=== PATIENT | male | born 1955 | race Caucasian/White ===

== ENCOUNTER → 2018-01-12 | Emergency (ER) | payer MEDICARE ==
[2018-01-12 17:44] LABS: INR-International Normal Ratio 1.1; PTT 25.3 SEC (22.9-36.1); Prothrombin Time 14.2 SEC (12.0-14.7)
[2018-01-12 17:46] LABS: #Basophils 0.1 thou/uL (0.0-0.2); #Eosinphils 0.2 thou/uL (0.0-0.7); #Lymphocytes 2.6 thou/uL (1.20-3.40); #Monocytes 0.7 thou/uL (0.11-0.59); #Neutrophils 5.8 thou/uL (1.40-6.50); %Basophils 0.6 % (0.0-1.0); %Eosinophils 2.1 % (0.0-10.0); %Lymphocytes 27.4 % (21.0-51.0); %Monocytes 7.8 % (0.0-10.0); %Neutrophils 62.1 % (42.0-75.0); Hemoglobin 14.2 g/dL (14.0-18.0); Mean Corpuscular Hemoglobin 28.6 pg (27.0-31.0); Mean Corpuscular Volume 86.8 fl (80.0-94.0); Mean Platelet Volume 5.6 fL (7.4-10.4); Platelet Count 190 thou/uL (130-400); RBC Distribution Width 13.1 % (11.5-14.5); Red Blood Cell (RBC) Count 4.95 mill/uL (4.70-6.10); White Blood Cell (WBC) Count 9.4 thou/uL (4.8-10.8)
[2018-01-12 17:55] LABS: ALT (SGPT) 27 U/L (8-55); AST (SGOT) 22 U/L (5-34); Albumin 3.9 g/dL (3.5-5.0); Alkaline Phosphatase 91 U/L (40-150); Anion Gap 17 mmol/L (10-20); BUN (Urea Nitrogen) 18 mg/dL (8.4-25.7); Bilirubin, Total 0.3 mg/dL (0.2-1.2); Calc. Creatinine Clearance 0 mL/min (70-130); Calcium 8.6 mg/dL (7.8-10.44); Carbon Dioxide 23 mmol/L (22-29); Chloride 107 mmol/L (98-107); Estimated GFR-MDRD Greater than 90; Globulin 3.3 g/dL (2.4-3.5); Glucose 97 mg/dL (70-105); Potassium 4.2 mmol/L (3.5-5.1); Protein, Total 7.2 g/dL (6.0-8.3); Sodium 143 mmol/L (136-145)
[2018-01-12 18:06] LABS: Bilirubin Negative (Negative); Blood, Urine Negative (Negative); Glucose, Urine (Dipstick) Negative (Negative); Leukocyte Negative (Negative); Nitrite Negative (Negative); Protein, Urine (Dipstick) Negative (Neg-Trace); Specific Gravity, Urine 1.025 (1.005-1.030); Urobilinogen 0.2 mg/dL (0.2-1.0)
[2018-01-12 18:07] LABS: Clarity Hazy (Clear)
[2018-01-12 18:13] LABS: Bacteria/HPF Rare-Few HPF (None Seen); RBC/HPF 0-3 HPF (0-3); Squamous Epithelial 0-3 HPF (0-3); WBC/HPF 0-3 HPF (0-3)
== END ==
LOC: MADERS 16:41
DX: Z76.0 Encounter for issue of repeat prescription (principal); G89.29 Other chronic pain; M54.2 Cervicalgia; I11.0 Hypertensive heart disease with heart failure; I50.9 Heart failure, unspecified; F31.9 Bipolar disorder, unspecified; F41.9 Anxiety disorder, unspecified; F43.10 Post-traumatic stress disorder, unspecified; I48.91 Unspecified atrial fibrillation; Z79.01 Long term (current) use of anticoagulants; Z79.899 Other long term (current) drug therapy
CPT/HCPCS: 36415; 80053; 81001; 83880; 85025; 85610; 85730; 87086; 99282

== ENCOUNTER 2018-06-24 14:15 | Outpatient (CLI) | payer MEDICARE ==
[2018-06-26 17:45] LABS: %Neutrophils 64.5 % (42.0-75.0); Hemoglobin 14.7 g/dL (14.0-18.0); Manual Diff?? NO; Mean Corpuscular HGB CONC 31.1 g/dL (32.0-36.0); Mean Corpuscular Hemoglobin 26.5 pg (27.0-31.0); Mean Platelet Volume 8.8 fL (7.4-10.4); Platelet Count 128 thou/uL (130-400); RBC Distribution Width 15.2 % (11.5-14.5); Red Blood Cell (RBC) Count 5.56 mill/uL (4.70-6.10); White Blood Cell (WBC) Count 9.7 thou/uL (4.8-10.8)
[2018-06-26 17:46] LABS: #Basophils 0.1 thou/uL (0.0-0.2); #Eosinphils 0.3 thou/uL (0.0-0.7); #Lymphocytes 2.3 thou/uL (1.20-3.40); #Monocytes 0.7 thou/uL (0.11-0.59); #Neutrophils 6.2 thou/uL (1.40-6.50); %Basophils 0.9 % (0.0-1.0); %Eosinophils 2.6 % (0.0-10.0); %Lymphocytes 24.3 % (21.0-51.0); %Monocytes 7.7 % (0.0-10.0)
[2018-06-26 17:47] LABS: INR-International Normal Ratio 2.2; PTT 43.1 SEC (22.9-36.1); Prothrombin Time 24.3 SEC (12.0-14.7)
[2018-06-26 17:48] LABS: Anion Gap 13 mmol/L (10-20); Carbon Dioxide 25 mmol/L (22-29); Chloride 103 mmol/L (98-107); Potassium 4.4 mmol/L (3.5-5.1); Sodium 137 mmol/L (136-145)
[2018-06-26 17:49] LABS: ALT (SGPT) 28 U/L (8-55); AST (SGOT) 33 U/L (5-34); Alkaline Phosphatase 87 U/L (40-150); BUN (Urea Nitrogen) 13 mg/dL (8.4-25.7); Bilirubin, Total 0.9 mg/dL (0.2-1.2); Calc. Creatinine Clearance 0 mL/min (70-130); Calcium 9.2 mg/dL (7.8-10.44); Estimated GFR-MDRD Greater than 90; Globulin 3.9 g/dL (2.4-3.5); Glucose 91 mg/dL (70-105); Protein, Total 7.9 g/dL (6.0-8.3)
== END 2018-06-24 14:16 | disposition home or self-care (01) ==
LOC: MADLAB 14:15
PROVIDERS: ATTEND Family Medicine
DX: Z51.81 Encounter for therapeutic drug level monitoring (principal); I48.2 Chronic atrial fibrillation; I50.9 Heart failure, unspecified; Z79.01 Long term (current) use of anticoagulants
CPT/HCPCS: 36415; 80053; 85025; 85610; 85730

== ENCOUNTER 2018-08-02 16:25 | Outpatient (CLI) | payer MEDICARE ==
[2018-08-02 16:45] LABS: #Basophils 0.1 thou/uL (0.0-0.2); #Eosinphils 0.2 thou/uL (0.0-0.7); #Lymphocytes 2.6 thou/uL (1.20-3.40); #Monocytes 0.8 thou/uL (0.11-0.59); #Neutrophils 5.8 thou/uL (1.40-6.50); %Basophils 0.8 % (0.0-1.0); %Eosinophils 2.5 % (0.0-10.0); %Lymphocytes 27.2 % (21.0-51.0); %Monocytes 8.7 % (0.0-10.0); %Neutrophils 60.8 % (42.0-75.0); Hemoglobin 15.8 g/dL (14.0-18.0); Mean Corpuscular HGB CONC 31.3 g/dL (32.0-36.0); Mean Corpuscular Hemoglobin 27.1 pg (27.0-31.0); Mean Corpuscular Volume 86.6 fL (78.0-98.0); Mean Platelet Volume 8.7 fL (7.4-10.4); Platelet Count 182 thou/uL (130-400); RBC Distribution Width 15.5 % (11.5-14.5); Red Blood Cell (RBC) Count 5.81 mill/uL (4.70-6.10); White Blood Cell (WBC) Count 9.6 thou/uL (4.8-10.8)
[2018-08-02 16:48] LABS: INR-International Normal Ratio 1.7; Prothrombin Time 19.7 SEC (12.0-14.7)
[2018-08-02 17:10] LABS: ALT (SGPT) 29 U/L (8-55); AST (SGOT) 33 U/L (5-34); Albumin 4.2 g/dL (3.4-4.8); Alkaline Phosphatase 96 U/L (40-150); Anion Gap 17 mmol/L (10-20); BUN (Urea Nitrogen) 14 mg/dL (8.4-25.7); Bilirubin, Total 0.5 mg/dL (0.2-1.2); Calc. Creatinine Clearance 0 mL/min (70-130); Calcium 8.9 mg/dL (7.8-10.44); Carbon Dioxide 26 mmol/L (23-31); Chloride 101 mmol/L (98-107); Estimated GFR-MDRD 81; Globulin 3.9 g/dL (2.4-3.5); Glucose 116 mg/dL (80-115); Potassium 4.5 mmol/L (3.5-5.1); Protein, Total 8.1 g/dL (5.8-8.1); Sodium 139 mmol/L (136-145)
== END 2018-08-02 16:26 | disposition home or self-care (01) ==
LOC: MADLABBHPM 16:25
PROVIDERS: ATTEND Family Medicine
DX: Z51.81 Encounter for therapeutic drug level monitoring (principal); I48.2 Chronic atrial fibrillation; Z79.01 Long term (current) use of anticoagulants
CPT/HCPCS: 36415; 80053; 85025; 85610; 85730

== ENCOUNTER 2018-08-31 15:54 | Outpatient (CLI) | payer MEDICARE, MEDICAID ==
[2018-08-31 16:19] LABS: INR-International Normal Ratio 2.1; Prothrombin Time 23.8 SEC (12.0-14.7)
== END 2018-08-31 15:55 | disposition home or self-care (01) ==
LOC: MADLAB 15:54
PROVIDERS: ATTEND Family Medicine
DX: Z51.81 Encounter for therapeutic drug level monitoring (principal); I48.2 Chronic atrial fibrillation; Z79.01 Long term (current) use of anticoagulants
CPT/HCPCS: 36415; 85610

== ENCOUNTER 2018-09-30 14:10 | Outpatient (CLI) | payer MEDICARE, MEDICAID ==
[2018-09-30 14:38] LABS: INR-International Normal Ratio 1.4; PTT 32.6 SEC (22.9-36.1); Prothrombin Time 17.6 SEC (12.0-14.7)
== END 2018-09-30 14:11 | disposition home or self-care (01) ==
LOC: MADLABBHPM 14:10
PROVIDERS: ATTEND Family Medicine
DX: Z51.81 Encounter for therapeutic drug level monitoring (principal); I48.2 Chronic atrial fibrillation; Z79.01 Long term (current) use of anticoagulants
CPT/HCPCS: 36415; 85610; 85730

== ENCOUNTER 2018-10-27 16:23 | Outpatient (CLI) | payer MEDICARE, MEDICAID ==
[2018-10-27 17:07] LABS: INR-International Normal Ratio 2.5; PTT 36.6 SEC (22.9-36.1); Prothrombin Time 27.2 SEC (12.0-14.7)
== END 2018-10-27 16:24 | disposition home or self-care (01) ==
LOC: MADLAB 16:23
PROVIDERS: ATTEND Family Medicine
DX: I48.2 Chronic atrial fibrillation (principal)
CPT/HCPCS: 36415; 85610; 85730

== ENCOUNTER 2018-11-18 15:30 | Outpatient (CLI) | payer MEDICARE, MEDICAID ==
[2018-11-18 16:06] LABS: INR-International Normal Ratio 2.8; PTT 50.1 SEC (22.9-36.1); Prothrombin Time 29.3 SEC (12.0-14.7)
== END 2018-11-18 15:31 | disposition home or self-care (01) ==
LOC: MADLABBHPM 15:30
PROVIDERS: ATTEND Family Medicine
DX: Z51.81 Encounter for therapeutic drug level monitoring (principal); I50.9 Heart failure, unspecified; I48.2 Chronic atrial fibrillation; Z79.01 Long term (current) use of anticoagulants
CPT/HCPCS: 36415; 85610; 85730

== ENCOUNTER 2018-12-22 14:43 | Outpatient (CLI) | payer MEDICARE, MEDICAID ==
[2018-12-22 15:05] LABS: INR-International Normal Ratio 2.6; PTT 43.5 SEC (22.9-36.1); Prothrombin Time 27.6 SEC (12.0-14.7)
== END 2018-12-22 14:44 | disposition home or self-care (01) ==
LOC: MADLABBHPM 14:43
PROVIDERS: ATTEND Family Medicine
DX: Z51.81 Encounter for therapeutic drug level monitoring (principal); Z79.01 Long term (current) use of anticoagulants; I48.2 Chronic atrial fibrillation
CPT/HCPCS: 36415; 85610; 85730

== ENCOUNTER 2019-01-26 16:21 | Outpatient (CLI) | payer MEDICARE, MEDICAID ==
[2019-01-26 16:49] LABS: PTT 47.9 SEC (22.9-36.1); Prothrombin Time 30.9 SEC (12.0-14.7)
== END 2019-01-26 16:22 | disposition home or self-care (01) ==
LOC: MADLABBHPM 16:21
PROVIDERS: ATTEND Family Medicine
DX: Z51.81 Encounter for therapeutic drug level monitoring (principal); I48.2 Chronic atrial fibrillation; Z79.01 Long term (current) use of anticoagulants
CPT/HCPCS: 36415; 85610; 85730

== ENCOUNTER 2019-02-23 14:09 | Outpatient (CLI) | payer MEDICARE, MEDICAID ==
[2019-02-23 15:31] LABS: INR-International Normal Ratio 2.8; PTT 56.4 SEC (22.9-36.1); Prothrombin Time 29.6 SEC (12.0-14.7)
== END 2019-02-23 14:10 | disposition home or self-care (01) ==
LOC: MADLABBHPM 14:09
PROVIDERS: ATTEND Family Medicine
DX: Z51.81 Encounter for therapeutic drug level monitoring (principal); I48.2 Chronic atrial fibrillation; Z79.01 Long term (current) use of anticoagulants
CPT/HCPCS: 36415; 85610; 85730

== ENCOUNTER 2019-03-27 13:18 | Outpatient (CLI) | payer MEDICARE, MEDICAID ==
[2019-03-27 14:39] LABS: PTT 48.1 SEC (22.9-36.1); Prothrombin Time 31.2 SEC (12.0-14.7)
== END 2019-03-27 13:19 | disposition home or self-care (01) ==
LOC: MADLABBHPM 13:18
PROVIDERS: ATTEND Family Medicine
DX: Z51.81 Encounter for therapeutic drug level monitoring (principal); I48.2 Chronic atrial fibrillation; Z79.01 Long term (current) use of anticoagulants
CPT/HCPCS: 36415; 85610; 85730

== ENCOUNTER 2019-04-28 14:55 | Outpatient (CLI) | payer MEDICARE, MEDICAID ==
[2019-04-28 15:16] LABS: INR-International Normal Ratio 1.6; PTT 33.6 SEC (22.9-36.1); Prothrombin Time 18.8 SEC (12.0-14.7)
== END 2019-04-28 14:56 | disposition home or self-care (01) ==
LOC: MADLABBHPM 14:55
PROVIDERS: ATTEND Family Medicine
DX: Z51.81 Encounter for therapeutic drug level monitoring (principal); I48.2 Chronic atrial fibrillation; Z79.01 Long term (current) use of anticoagulants
CPT/HCPCS: 36415; 85610; 85730

== ENCOUNTER 2019-05-29 13:18 | Outpatient (CLI) | payer MEDICARE, MEDICAID ==
[2019-05-29 13:51] LABS: INR-International Normal Ratio 3.1; PTT 48.5 SEC (22.9-36.1); Prothrombin Time 31.4 SEC (12.0-14.7)
== END 2019-05-29 13:19 | disposition home or self-care (01) ==
LOC: MADLABBHPM 13:18
PROVIDERS: ATTEND Family Medicine
DX: I48.2 Chronic atrial fibrillation (principal)
CPT/HCPCS: 36415; 85610; 85730

== ENCOUNTER 2019-07-03 11:24 | Outpatient (CLI) | payer MEDICARE, MEDICAID ==
[2019-07-03 18:45] LABS: INR-International Normal Ratio 3.2; Prothrombin Time 32.8 SEC (12.0-14.7)
[2019-07-03 18:46] LABS: PTT 54.6 SEC (22.9-36.1)
== END 2019-07-03 11:25 | disposition home or self-care (01) ==
LOC: MADLABBHPM 11:24
PROVIDERS: ATTEND Family Medicine
DX: Z51.81 Encounter for therapeutic drug level monitoring (principal); I48.20 Chronic atrial fibrillation, unspecified; Z79.01 Long term (current) use of anticoagulants
CPT/HCPCS: 36415; 85610; 85730

== ENCOUNTER 2019-08-03 14:32 | Emergency (ER) | payer MEDICARE, MEDICAID ==
[2019-08-03 15:23] LABS: Bilirubin Negative (Negative); Blood, Urine Trace (Negative); Clarity Clear (Clear); Glucose, Urine (Dipstick) Negative (Negative); Leukocyte Negative (Negative); Nitrite Negative (Negative); Protein, Urine (Dipstick) Negative (Neg-Trace); Urobilinogen 0.2 mg/dL (Less than 2)
[2019-08-03 15:26] LABS: RBC/HPF 0-3 HPF (0-3); Squamous Epithelial 0-3 HPF (0-3); WBC/HPF None Seen HPF (0-3)
[2019-08-03 15:27] LABS: Bacteria/HPF None Seen HPF (None Seen)
[2019-08-03] MEDS ORDERED: Sodium Chloride 0.9% 1,000 ML ONE (15:30)
[2019-08-03] MEDS ORDERED: Acetaminophen 500 MG TAB ONE (15:30)
[2019-08-03 15:41] LABS: INR-International Normal Ratio 3.8; PTT 57.9 SEC (22.9-36.1); Prothrombin Time 36.8 SEC (12.0-14.7)
[2019-08-03 15:48] LABS: CRP (Inflammatory) 1.08 mg/dL (= or < 0.5)
[2019-08-03 15:51] LABS: ALT (SGPT) 42 U/L (8-55); AST (SGOT) 33 U/L (5-34); Albumin 4.5 g/dL (3.4-4.8); Alkaline Phosphatase 77 U/L (40-110); Anion Gap 16 mmol/L (10-20); BUN (Urea Nitrogen) 12 mg/dL (8.4-25.7); Bilirubin, Total 0.8 mg/dL (0.2-1.2); Calc. Creatinine Clearance 0 mL/min (70-130); Calcium 9.4 mg/dL (7.8-10.44); Carbon Dioxide 27 mmol/L (23-31); Chloride 101 mmol/L (98-107); Estimated GFR-MDRD Greater than 90; Globulin 3.7 g/dL (2.4-3.5); Glucose 87 mg/dL (80-115); Lipase 21 U/L (8-78); Potassium 4.3 mmol/L (3.5-5.1); Protein, Total 8.2 g/dL (5.8-8.1); Sodium 140 mmol/L (136-145)
[2019-08-03 16:00] LABS: Band 1 % (5-11); Hemoglobin 15.6 g/dL (14.0-18.0); Lymphocytes 16 % (21-51); MDiff Complete? YES; Mean Corpuscular HGB CONC 29.9 g/dL (32.0-36.0); Mean Corpuscular Hemoglobin 27.4 pg (27.0-31.0); Mean Corpuscular Volume 91.6 fL (78.0-98.0); Mean Platelet Volume 7.2 fL (7.4-10.4); Monocytes 2 % (0-10); Neutrophil 81 % (42-75); Platelet Count 205 thou/uL (130-400); Platelet Morphology Comment Appears Adequate; RBC Distribution Width 13.7 % (11.5-14.5); Red Blood Cell (RBC) Count 5.69 mill/uL (4.70-6.10); White Blood Cell (WBC) Count 15.2 thou/uL (4.8-10.8)
[2019-08-03] MEDS ORDERED: Sodium Chloride 0.9% 200 ML ONE (16:10)
[2019-08-03] MEDS ORDERED: ceFOXitin 1 GM VIAL ONE (16:10)
== END 2019-08-03 17:24 | disposition short-term general hospital (02) ==
LOC: MADERS 14:32
DX: A41.9 Sepsis, unspecified organism (principal); T45.511A Poisoning by anticoagulants, accidental (unintentional), initial encounter; K43.6 Other and unspecified ventral hernia with obstruction, without gangrene; D72.829 Elevated white blood cell count, unspecified; I11.0 Hypertensive heart disease with heart failure; I50.9 Heart failure, unspecified; I49.9 Cardiac arrhythmia, unspecified; I48.91 Unspecified atrial fibrillation; F43.10 Post-traumatic stress disorder, unspecified; F31.9 Bipolar disorder, unspecified; Z79.899 Other long term (current) drug therapy
CPT/HCPCS: 36415; 80053; 81003; 81015; 82150; 82550; 83605; 83690; 84484; 85025; 85610; 85730; 86140; 87040; 87086; 87804; 93005; 94760; 96361; 96365; J0694; J3490; J7050

== ENCOUNTER 2019-08-17 13:46 | Outpatient (CLI) | payer MEDICARE, MEDICAID ==
[2019-08-17 14:21] LABS: INR-International Normal Ratio 1.5; Prothrombin Time 18.2 SEC (12.0-14.7)
== END 2019-08-17 13:47 | disposition home or self-care (01) ==
LOC: MADLABBHPM 13:46
PROVIDERS: ATTEND Family Medicine
DX: I48.20 Chronic atrial fibrillation, unspecified (principal)
CPT/HCPCS: 36415; 85610

== ENCOUNTER 2019-08-22 08:46 | Outpatient (CLI) | payer MEDICARE, MEDICAID ==
[2019-08-22 09:23] LABS: INR-International Normal Ratio 2.5; Prothrombin Time 26.5 SEC (12.0-14.7)
== END 2019-08-22 08:47 | disposition home or self-care (01) ==
LOC: MADLABBHPM 08:46
PROVIDERS: ATTEND Family Medicine
DX: I48.20 Chronic atrial fibrillation, unspecified (principal)
CPT/HCPCS: 36415; 85610

== ENCOUNTER 2019-09-26 11:25 | Outpatient (CLI) | payer MEDICARE, MEDICAID ==
[2019-09-26 12:05] LABS: #Basophils 0.1 thou/uL (0.0-0.2); #Eosinphils 0.1 thou/uL (0.0-0.7); #Lymphocytes 2.5 thou/uL (1.20-3.40); #Monocytes 0.8 thou/uL (0.11-0.59); #Neutrophils 4.3 thou/uL (1.40-6.50); %Basophils 0.8 % (0.0-1.0); %Eosinophils 1.8 % (0.0-10.0); %Lymphocytes 31.7 % (21.0-51.0); %Monocytes 10.2 % (0.0-10.0); %Neutrophils 55.5 % (42.0-75.0); Hemoglobin 14.2 g/dL (14.0-18.0); Mean Corpuscular HGB CONC 30.6 g/dL (32.0-36.0); Mean Corpuscular Volume 88.1 fL (78.0-98.0); Mean Platelet Volume 7.3 fL (7.4-10.4); Platelet Count 212 thou/uL (130-400); RBC Distribution Width 13.6 % (11.5-14.5); Red Blood Cell (RBC) Count 5.26 mill/uL (4.70-6.10); White Blood Cell (WBC) Count 7.8 thou/uL (4.8-10.8)
[2019-09-26 12:16] LABS: ALT (SGPT) 28 U/L (8-55); AST (SGOT) 24 U/L (5-34); Albumin 3.9 g/dL (3.4-4.8); Alkaline Phosphatase 73 U/L (40-110); Anion Gap 12 mmol/L (10-20); BUN (Urea Nitrogen) 11 mg/dL (8.4-25.7); Bilirubin, Total 0.6 mg/dL (0.2-1.2); Calc. Creatinine Clearance 0 mL/min (70-130); Calcium 8.9 mg/dL (7.8-10.44); Carbon Dioxide 26 mmol/L (23-31); Cardiac Risk 4.9 (Less than 4.5); Chloride 106 mmol/L (98-107); Cholesterol 162 mg/dl (< 200 Desired); Estimated GFR-MDRD Greater than 90; Globulin 3.8 g/dL (2.4-3.5); Glucose 97 mg/dL (80-115); HDL Cholesterol 33 mg/dL (>60 Neg Risk); LDL Cholesterol, Calculated 112 mg/dL; Potassium 4.2 mmol/L (3.5-5.1); Protein, Total 7.7 g/dL (5.8-8.1); Sodium 140 mmol/L (136-145); Triglycerides 83 mg/dL (Less than 150)
[2019-09-26 12:36] LABS: Thyroid Stimulating Hormone 1.3412 uIU/mL (0.35-4.94)
[2019-09-26 12:42] LABS: INR-International Normal Ratio 1.7; Prothrombin Time 19.9 SEC (12.0-14.7)
[2019-09-26 17:35] LABS: Hemoglobin A1c 5.8 % (4.0-6.0)
[2019-09-26 17:58] LABS: PSA-Asymptomatic (SCREENING) 10.23 ng/mL (0-4.0)
== END 2019-09-26 11:26 | disposition home or self-care (01) ==
LOC: MADLABBHPM 11:25
PROVIDERS: ATTEND Family Medicine
DX: Z12.5 Encounter for screening for malignant neoplasm of prostate (principal); I50.22 Chronic systolic (congestive) heart failure; I48.20 Chronic atrial fibrillation, unspecified; E66.01 Morbid (severe) obesity due to excess calories
CPT/HCPCS: 36415; 80053; 80061; 83036; 84443; 85025; 85610; G0103

== ENCOUNTER 2020-02-27 14:04 | Outpatient (CLI) | payer MEDICARE, MEDICAID ==
[2020-02-27 14:34] LABS: INR-International Normal Ratio 2.5; Prothrombin Time 26.6 sec (12.0-14.7)
== END 2020-02-27 14:05 | disposition home or self-care (01) ==
LOC: MADLAB 14:04
PROVIDERS: ATTEND Family Medicine
DX: Z51.81 Encounter for therapeutic drug level monitoring (principal); I48.20 Chronic atrial fibrillation, unspecified; Z79.01 Long term (current) use of anticoagulants
CPT/HCPCS: 36415; 85610

== ENCOUNTER 2020-03-26 10:11 | Outpatient (CLI) | payer MEDICARE, MEDICAID ==
[2020-03-26 11:14] LABS: INR-International Normal Ratio 3.9
== END 2020-03-26 10:12 | disposition home or self-care (01) ==
LOC: MADLAB 10:11
PROVIDERS: ATTEND Family Medicine
DX: Z51.81 Encounter for therapeutic drug level monitoring (principal); I48.20 Chronic atrial fibrillation, unspecified; Z79.01 Long term (current) use of anticoagulants
CPT/HCPCS: 36415; 85610

== ENCOUNTER 2020-04-30 11:44 | Outpatient (CLI) | payer MEDICARE, MEDICAID ==
[2020-04-30 12:10] LABS: INR-International Normal Ratio 2.2; Prothrombin Time 24.6 sec (12.0-14.7)
== END 2020-04-30 11:45 | disposition home or self-care (01) ==
LOC: MADLAB 11:44
PROVIDERS: ATTEND Family Medicine
DX: Z51.81 Encounter for therapeutic drug level monitoring (principal); I48.20 Chronic atrial fibrillation, unspecified; Z79.01 Long term (current) use of anticoagulants
CPT/HCPCS: 36415; 85610

== ENCOUNTER 2020-04-30 20:08 | Emergency (ER) | payer MEDICARE, MEDICAID ==
[2020-04-30] MEDS ORDERED: Sodium Chloride 0.9% 1,000 ML ONE (20:24)
[2020-04-30] MEDS ORDERED: Ondansetron PF 4 MG/2 ML Vial ONE (20:24)
[2020-04-30] MEDS ORDERED: Pantoprazole 40 MG VIAL ONE (20:27)
[2020-04-30] MEDS ORDERED: Promethazine HCl 25 MG/ML VIAL ONE (20:35)
[2020-04-30 20:49] LABS: #Basophils 0.1 thou/uL (0.0-0.2); #Eosinphils 0.2 thou/uL (0.0-0.7); #Lymphocytes 3.1 thou/uL (1.20-3.40); #Neutrophils 10.2 thou/uL (1.40-6.50); %Basophils 0.8 % (0.0-1.0); %Eosinophils 1.1 % (0.0-10.0); %Lymphocytes 21.5 % (21.0-51.0); %Neutrophils 69.8 % (42.0-75.0); Mean Corpuscular HGB CONC 30.9 g/dL (32.0-36.0); Mean Corpuscular Hemoglobin 27.6 pg (27.0-31.0); Mean Corpuscular Volume 89.1 fL (78.0-98.0); Mean Platelet Volume 6.6 fL (7.4-10.4); Platelet Count 230 thou/uL (130-400); RBC Distribution Width 13.8 % (11.5-14.5); Red Blood Cell (RBC) Count 5.43 mill/uL (4.70-6.10); White Blood Cell (WBC) Count 14.6 thou/uL (4.8-10.8)
[2020-04-30 20:59] LABS: ALT (SGPT) 57 U/L (8-55); AST (SGOT) 70 U/L (5-34); Albumin 4.3 g/dL (3.4-4.8); Alkaline Phosphatase 90 U/L (40-110); Anion Gap 15 mmol/L (10-20); BUN (Urea Nitrogen) 16 mg/dL (8.4-25.7); Bilirubin, Total 0.7 mg/dL (0.2-1.2); CRP (Inflammatory) 0.71 mg/dL (= or < 0.5); Calc. Creatinine Clearance 0 mL/min (70-130); Calcium 9.1 mg/dL (7.8-10.44); Carbon Dioxide 25 mmol/L (23-31); Chloride 105 mmol/L (98-107); Estimated GFR-MDRD Greater than 90; Globulin 3.7 g/dL (2.4-3.5); Glucose 123 mg/dL (80-115); Lipase 33 U/L (8-78); Potassium 4.4 mmol/L (3.5-5.1); Sodium 141 mmol/L (136-145)
[2020-04-30] MEDS ORDERED: Metoclopramide HCl 10 MG/2 ML VIAL ONE (22:04)
--- NOTE | 2020-04-30 22:05 | RAD ---
Chest one view HISTORY: Nausea. Vomiting. Dyspnea. COMPARISON: 11/15/2018. FINDINGS: Cardiac silhouette is magnified and upper limits of normal in size. Pulmonary vasculature a lso upper limits of normal. Mediastinum is midline. No lobar consolidation or evidence of pneumothorax. IMPRESSION : Borderline cardiomegaly and pulmonary vascular congestion. No florid edema.
[2020-04-30] MEDS ORDERED: Sodium Chloride 0.9% 100 ML ONE (22:06)
--- NOTE | 2020-04-30 22:22 | RAD ---
Abdomen one view HISTORY: Abdomen pain. FINDINGS: Large amount of stool is present throughout the colon. Small bowel gas pattern is nonspecific. No radiopaque foreign bodies are apparent. There are degenerative changes of thoracic spine and hips. IMPRESSION : Nonspecific bowel gas pattern.
[2020-04-30] MEDS ORDERED: Famotidine In NaCl 20 mg/50 ml Premix Bag ONE (22:33)
[2020-04-30] MEDS ORDERED: diphenhydrAMINE 50 MG/ML VIAL ONE (22:33)
[2020-04-30] MEDS ORDERED: methylPREDNISolone Sod Succ/PF 125 MG/2 ML VIAL ONE (22:33)
[2020-05-01] MEDS ORDERED: Diphenoxylate HCl/Atropine Tablet ONE (00:33)
== END 2020-05-01 09:09 | disposition home or self-care (01) ==
LOC: MADERS 20:08
DX: T78.09XA Anaphylactic reaction due to other food products, initial encounter (principal); R11.2 Nausea with vomiting, unspecified; I11.0 Hypertensive heart disease with heart failure; I50.9 Heart failure, unspecified; I48.91 Unspecified atrial fibrillation; Z79.899 Other long term (current) drug therapy
CPT/HCPCS: 36415; 71045; 74018; 80053; 82150; 82550; 83690; 84484; 85025; 85610; 86140; 94760; 96365; 96367; 96375; C9113; J1200; J2405; J2550; J2765; J2930; J3490; J7050

== ENCOUNTER 2020-05-28 12:12 | Outpatient (CLI) | payer MEDICARE, OTHER ==
[2020-05-28 12:54] LABS: INR-International Normal Ratio 1.9; Prothrombin Time 21.9 sec (12.0-14.7)
== END 2020-05-28 12:13 | disposition home or self-care (01) ==
LOC: MADLABBHPM 12:12
PROVIDERS: ATTEND Family Medicine
DX: Z51.81 Encounter for therapeutic drug level monitoring (principal); I48.20 Chronic atrial fibrillation, unspecified; Z79.01 Long term (current) use of anticoagulants
CPT/HCPCS: 36415; 85610

== ENCOUNTER 2020-08-14 00:13 | Emergency (ER) | payer MEDICARE, MEDICAID ==
[2020-08-14] MEDS ORDERED: Ondansetron ODT 4 MG TAB ONE (00:54)
[2020-08-14] MEDS ORDERED: Promethazine HCl 25 MG/ML VIAL ONE ×2 (01:29→03:48)
[2020-08-14] MEDS ORDERED: Sodium Chloride 0.9% 50 ML ONE (01:29)
[2020-08-14 01:37] LABS: #Basophils 0.1 thou/uL (0.0-0.2); #Eosinphils 0.1 thou/uL (0.0-0.7); #Monocytes 0.5 thou/uL (0.11-0.59); %Basophils 0.8 % (0.0-1.0); %Eosinophils 0.8 % (0.0-10.0); %Lymphocytes 16.7 % (21.0-51.0); %Monocytes 4.6 % (0.0-10.0); %Neutrophils 77.1 % (42.0-75.0); Hemoglobin 16.3 g/dL (14.0-18.0); Mean Corpuscular HGB CONC 31.2 g/dL (32.0-36.0); Mean Corpuscular Volume 89.9 fL (78.0-98.0); Mean Platelet Volume 6.9 fL (7.4-10.4); Platelet Count 205 thou/uL (130-400); RBC Distribution Width 13.5 % (11.5-14.5); Red Blood Cell (RBC) Count 5.81 mill/uL (4.70-6.10); White Blood Cell (WBC) Count 11.7 thou/uL (4.8-10.8)
[2020-08-14 01:57] LABS: ALT (SGPT) 94 U/L (8-55); AST (SGOT) 109 U/L (5-34); Albumin 4.5 g/dL (3.4-4.8); Alkaline Phosphatase 89 U/L (40-110); Anion Gap 18 mmol/L (10-20); BUN (Urea Nitrogen) 16 mg/dL (8.4-25.7); Bilirubin, Total 1.3 mg/dL (0.2-1.2); Calc. Creatinine Clearance 0 mL/min (70-130); Calcium 9.3 mg/dL (7.8-10.44); Carbon Dioxide 28 mmol/L (23-31); Chloride 99 mmol/L (98-107); Globulin 4.1 g/dL (2.4-3.5); Glucose 142 mg/dL (80-115); Lipase 24 U/L (8-78); Potassium 4.2 mmol/L (3.5-5.1); Protein, Total 8.6 g/dL (5.8-8.1); Sodium 141 mmol/L (136-145)
[2020-08-14] MEDS ORDERED: diphenhydrAMINE 50 MG/ML VIAL ONE (02:36)
[2020-08-14] MEDS ORDERED: Sodium Chloride 0.9% 500 ML ONE (02:36)
[2020-08-14] MEDS ORDERED: Metoclopramide HCl 10 MG/2 ML VIAL ONE (02:36)
[2020-08-14] MEDS ORDERED: Fentanyl 100 MCG/2 ML VIAL ONE (04:20)
--- NOTE | 2020-08-14 08:52 | CT ---
PRELIMINARY REPORT/[facility]/EMERGENCY AFTER HOURS PROCEDURE: EXAM: CT Abdomen and Pelvis with Intravenous Contrast CLINICAL HISTORY: N/V; RUQ/EPIGASTRIC PAIN THAT STARTED 5 HOURS PRIOR TO ARRIVAL IN THE ER; ATTEMPTED AN U/S BUT PATIEN T WAS UNABLE TO TOLERATE DUE TO TENDERNESS IN THE EPIGASTRIC/RUQ AREA; SOB; LARGE BODY HABITUS. TECHNIQUE: Axial computed tomography images of the abdomen and pelvis with intravenous contrast. CONTRAST: With; ISOVUE 370; 100 MLS COMPARISON: None provided. FINDINGS: LUNG BASES: Coronary artery calcifications are present. LIVER: Unremarkable. GALLBLADDER AND BILE DUCTS: The gallbladder is distended with fluid. No radiopaque gallstones. Minimal mural thickening is presen t. PANCREAS: Unremarkable. SPLEEN: Unremarkable. ADRENAL GLANDS: Unremarkable. KIDNEYS, URETERS, AND BLADDER: Unremarkable. No hydronephrosis or nephrolithiasis. No ureteral or bladder calculi. STOMACH AND BOWEL: Sigmoid is under distended, limiting evaluation. No bowel obstruction. APPENDIX: Normal appendix. PERITONEUM: No free fluid. No free air. LYMPH NODES: Mildly prominent inguinal lymph nodes measuring up to 1.3 cm in short axis on the left. REPRODUCTIVE: Unremarkable as visualized. VASCULATURE: No aortic aneurysm. BONES: Mild degenerative changes of the spine most prominent at L5/S1. ABDOMINAL WALL AND SOFT TISSUES: Small left fat-containing inguinal hernia. IMPRESSION: The gallbladder is distended with fluid. No radiopaque gallstones. Minimal mural thickening is pres ent. Findings are nonspecific and incompletely evaluated on CT, but may be seen in the setting of ac jamul cholecystitis. Right upper quadrant ultrasound or nuclear medicine HIDA scan may be obtained for further evaluation. ELECTRONICALLY SIGNED BY: Jacey Stroud MD Aug 14, 2020 5:06:04 AM [employer] APPRENTICE This report is intended for review by the ordering physician only, in accordance of law. If you recei ve this report in error, please call [facility] at [phone]. FINAL REPORT CT ABDOMEN AND PELVIS WITH IV CONTRAST: Liver and spleen unremarkable. Mildly distended gallbladder is noted as reported on the preliminary report. Pancreas, adrenal glands, and kidneys unremarkable. Bowel loops unremarkable. Appendix terrence ears normal. I am in agreement with the preliminary report. POS: AGW
[2020-08-14] MEDS ORDERED: Iopamidol 370 76% 100 ML VIAL ONE (12:58)
== END 2020-08-14 06:55 | disposition home or self-care (01) ==
LOC: MADERS 00:13
DX: R10.11 Right upper quadrant pain (principal); R11.2 Nausea with vomiting, unspecified; I11.0 Hypertensive heart disease with heart failure; I50.9 Heart failure, unspecified; E66.9 Obesity, unspecified; J44.9 Chronic obstructive pulmonary disease, unspecified; I48.91 Unspecified atrial fibrillation; Z79.899 Other long term (current) drug therapy
CPT/HCPCS: 74177; 80053; 83690; 84484; 85025; 93005; 94760; 96365; 96375; 96376; J1200; J2550; J2765; J3010; J7030; Q0162; Q9967

== ENCOUNTER 2021-04-01 21:04 | Outpatient (CLI) | payer MEDICARE, MEDICAID ==
[2021-04-01 22:00] LABS: Prothrombin Time 31.5 sec (12.0-14.7)
== END 2021-04-01 21:05 | disposition home or self-care (01) ==
LOC: MADLAB 21:04
PROVIDERS: ATTEND Family Medicine
DX: Z51.81 Encounter for therapeutic drug level monitoring (principal); I48.20 Chronic atrial fibrillation, unspecified; Z79.01 Long term (current) use of anticoagulants
CPT/HCPCS: 36415; 85610

== ENCOUNTER 2021-06-07 08:07 | Outpatient (CLI) | payer MEDICARE, MEDICAID ==
[2021-06-07 08:39] LABS: INR-International Normal Ratio 1.7; Prothrombin Time 19.8 sec (12.0-14.7)
[2021-06-07 08:40] LABS: #Basophils 0.1 thou/uL (0.0-0.2); #Eosinphils 0.2 thou/uL (0.0-0.7); #Lymphocytes 3.4 thou/uL (1.20-3.40); #Monocytes 0.8 thou/uL (0.11-0.59); #Neutrophils 6.9 thou/uL (1.40-6.50); %Basophils 0.8 % (0.0-1.0); %Eosinophils 1.9 % (0.0-10.0); %Lymphocytes 29.9 % (21.0-51.0); %Monocytes 6.7 % (0.0-10.0); %Neutrophils 60.8 % (42.0-75.0); Hemoglobin 15.4 g/dL (14.0-18.0); Mean Corpuscular HGB CONC 30.7 g/dL (32.0-36.0); Mean Corpuscular Hemoglobin 28.4 pg (27.0-31.0); Mean Corpuscular Volume 92.4 fL (78.0-98.0); Mean Platelet Volume 6.4 fL (7.4-10.4); Platelet Count 184 thou/uL (130-400); RBC Distribution Width 14.3 % (11.5-14.5); Red Blood Cell (RBC) Count 5.43 mill/uL (4.70-6.10); White Blood Cell (WBC) Count 11.3 thou/uL (4.8-10.8)
[2021-06-07 09:21] LABS: ALT (SGPT) 32 U/L (8-55); AST (SGOT) 22 U/L (5-34); Albumin 3.7 g/dL (3.4-4.8); Alkaline Phosphatase 61 U/L (40-110); Anion Gap 13 mmol/L (10-20); BUN (Urea Nitrogen) 13 mg/dL (8.4-25.7); Bilirubin, Total 0.8 mg/dL (0.2-1.2); Calc. Creatinine Clearance 0 mL/min (70-130); Calcium 8.6 mg/dL (7.8-10.44); Carbon Dioxide 27 mmol/L (23-31); Cardiac Risk 4.5 (Less than 4.5); Chloride 105 mmol/L (98-107); Cholesterol 181 mg/dl (< 200 Desired); Globulin 2.9 g/dL (2.4-3.5); Glucose 119 mg/dL (80-115); HDL Cholesterol 40 mg/dL (>60 Neg Risk); LDL Cholesterol, Calculated 121 mg/dL; Potassium 4.3 mmol/L (3.5-5.1); Protein, Total 6.6 g/dL (5.8-8.1); Sodium 141 mmol/L (136-145); Triglycerides 101 mg/dL (Less than 150)
== END 2021-06-07 08:08 | disposition home or self-care (01) ==
LOC: MADLAB 08:07
PROVIDERS: ATTEND Family Medicine
DX: Z51.81 Encounter for therapeutic drug level monitoring (principal); I10 Essential (primary) hypertension; I48.20 Chronic atrial fibrillation, unspecified; E66.01 Morbid (severe) obesity due to excess calories; Z79.01 Long term (current) use of anticoagulants
CPT/HCPCS: 36415; 80053; 80061; 84443; 85025; 85610

== ENCOUNTER 2021-08-14 12:54 | Outpatient (CLI) | payer MEDICARE, MEDICAID ==
[2021-08-14 13:24] LABS: INR-International Normal Ratio 1.9
== END 2021-08-14 12:55 | disposition home or self-care (01) ==
LOC: MADLAB 12:54
PROVIDERS: ATTEND Family Medicine
DX: Z51.81 Encounter for therapeutic drug level monitoring (principal); I48.20 Chronic atrial fibrillation, unspecified; Z79.01 Long term (current) use of anticoagulants
CPT/HCPCS: 36415; 85610

== ENCOUNTER 2021-08-16 17:16 | Emergency (ER) | payer MEDICARE, MEDICAID ==
[2021-08-16] MEDS ORDERED: Iopamidol 370 76% 100 ML VIAL IV ONE (17:17)
[2021-08-16 19:00] LABS: #Basophils 0.1 thou/uL (0.0-0.2); #Eosinphils 0.1 thou/uL (0.0-0.7); #Monocytes 0.6 thou/uL (0.11-0.59); #Neutrophils 7.1 thou/uL (1.40-6.50); %Basophils 0.8 % (0.0-1.0); %Eosinophils 1.3 % (0.0-10.0); %Lymphocytes 19.9 % (21.0-51.0); %Monocytes 6.5 % (0.0-10.0); %Neutrophils 71.5 % (42.0-75.0); Hemoglobin 15.5 g/dL (14.0-18.0); Mean Corpuscular HGB CONC 31.6 g/dL (32.0-36.0); Mean Corpuscular Hemoglobin 28.5 pg (27.0-31.0); Mean Corpuscular Volume 90.2 fL (78.0-98.0); Mean Platelet Volume 6.4 fL (7.4-10.4); Platelet Count 157 thou/uL (130-400); RBC Distribution Width 13.4 % (11.5-14.5); Red Blood Cell (RBC) Count 5.43 mill/uL (4.70-6.10); White Blood Cell (WBC) Count 9.9 thou/uL (4.8-10.8)
[2021-08-16] MEDS ORDERED: Diphenoxylate HCl/Atropine Tablet ONE (19:01)
[2021-08-16] MEDS ORDERED: Lactated Ringer's 1,000 ML ONE (19:02)
[2021-08-16 19:13] LABS: ALT (SGPT) 25 U/L (8-55); AST (SGOT) 21 U/L (5-34); Alkaline Phosphatase 66 U/L (40-110); Anion Gap 14 mmol/L (10-20); BUN (Urea Nitrogen) 14 mg/dL (8.4-25.7); Bilirubin, Total 0.7 mg/dL (0.2-1.2); Calc. Creatinine Clearance 0 mL/min (70-130); Calcium 8.1 mg/dL (7.8-10.44); Carbon Dioxide 24 mmol/L (23-31); Chloride 103 mmol/L (98-107); Globulin 3.3 g/dL (2.4-3.5); Glucose 96 mg/dL (80-115); Lipase 18 U/L (8-78); Magnesium 1.7 mg/dL (1.6-2.6); Potassium 3.8 mmol/L (3.5-5.1); Protein, Total 7.3 g/dL (5.8-8.1); Sodium 137 mmol/L (136-145)
== END 2021-08-16 20:55 | disposition home or self-care (01) ==
LOC: MADERS 17:16
DX: R10.84 Generalized abdominal pain (principal); R19.7 Diarrhea, unspecified; R11.0 Nausea; I11.0 Hypertensive heart disease with heart failure; I50.9 Heart failure, unspecified; I48.91 Unspecified atrial fibrillation; J44.9 Chronic obstructive pulmonary disease, unspecified; E66.9 Obesity, unspecified; F17.210 Nicotine dependence, cigarettes, uncomplicated
CPT/HCPCS: 36415; 74177; 80053; 83605; 83690; 83735; 85025; 94760; 96372; J0500; J7120; Q9967

== ENCOUNTER 2023-03-22 15:11 | Outpatient (CLI) | payer OTHER, MEDICAID | END 2023-03-22 15:12 | disposition home or self-care (01) | LOC: MADRAD 15:11 | PROVIDERS: ATTEND Internal Medicine | DX: M47.817 Spondylosis without myelopathy or radiculopathy, lumbosacral region (principal) | CPT/HCPCS: 72100 ==

== ENCOUNTER 2024-03-04 13:29 | Emergency (ER) | payer MEDICARE, OTHER ==
[2024-03-04] MEDS ORDERED: Clindamycin/D5W 900 mg/50 ml Premix Bag ONE (14:04)
[2024-03-04] MEDS ORDERED: Cefepime 2 GM VIAL ONE (14:04)
[2024-03-04] MEDS ORDERED: Lactated Ringer's 1,000 ML ONE ×2 (14:04→17:38)
[2024-03-04] MEDS ORDERED: Sodium Chloride 0.9% 100 ML ONE (14:04)
[2024-03-04] MEDS ORDERED: Ketorolac Tromethamine 30 MG (1 mL) VIAL ONE (14:04)
[2024-03-04 14:19] LABS: #Basophils 0.1 thou/uL (0.0-0.2); #Eosinphils 0.1 thou/uL (0.0-0.7); #Lymphocytes 1.3 thou/uL (1.20-3.40); #Monocytes 0.7 thou/uL (0.11-0.59); #Neutrophils 12.3 thou/uL (1.40-6.50); %Basophils 0.4 % (0.0-1.0); %Eosinophils 0.6 % (0.0-10.0); %Lymphocytes 8.7 % (21.0-51.0); %Monocytes 5.1 % (0.0-10.0); %Neutrophils 85.2 % (42.0-75.0); Hemoglobin 14.6 g/dL (14.0-18.0); Mean Corpuscular HGB CONC 31.1 g/dL (32.0-36.0); Mean Corpuscular Hemoglobin 28.4 pg (27.0-31.0); Mean Corpuscular Volume 91.1 fl (78.0-98.0); Mean Platelet Volume 6.4 fL (7.4-10.4); Platelet Count 149 10x3/uL (130-400); RBC Distribution Width 13.3 % (11.5-14.5); Red Blood Cell (RBC) Count 5.16 mill/uL (4.70-6.10); White Blood Cell (WBC) Count 14.4 10x3/uL (4.8-10.8)
[2024-03-04 14:26] LABS: INR-International Normal Ratio 1.1; Prothrombin Time 13.7 sec (12.0-14.7)
[2024-03-04 14:27] LABS: PTT 28.1 sec (22.9-36.1)
[2024-03-04 14:33] LABS: ALT (SGPT) 26 U/L (8-55); AST (SGOT) 25 U/L (5-34); Albumin 3.9 g/dL (3.4-4.8); Alkaline Phosphatase 77 U/L (40-110); Anion Gap 18 mmol/L (10-20); BUN (Urea Nitrogen) 13 mg/dL (8.4-25.7); Bilirubin, Total 0.7 mg/dL (0.2-1.2); Calc. Creatinine Clearance 0 mL/min (70-130); Calcium 8.7 mg/dL (7.8-10.44); Carbon Dioxide 21 mmol/L (23-31); Chloride 102 mmol/L (98-107); Estimated GFR 101; Globulin 3.3 g/dL (2.4-3.5); Glucose 113 mg/dL (80-115); Magnesium 1.5 mg/dL (1.6-2.6); Potassium 4.2 mmol/L (3.5-5.1); Protein, Total 7.2 g/dL (5.8-8.1); Sodium 137 mmol/L (136-145)
[2024-03-04 14:36] LABS: Troponin I Less than 0.010 ng/mL (< 0.028)
[2024-03-04] MEDS ORDERED: Magnesium 2 GM/50 ML BAG (IN WATER) ONE (14:54)
[2024-03-04] MEDS ORDERED: Metoprolol Tartrate 5 MG (5 mL) VIAL ONE (15:14)
[2024-03-04 15:50] LABS: Bilirubin Negative (Negative); Blood, Urine Negative (Negative); Glucose, Urine (Dipstick) Negative (Negative); Ketone, Urine Negative (Negative); Leukocyte Negative (Negative); Nitrite Negative (Negative); Protein, Urine (Dipstick) Negative (Neg-Trace)
[2024-03-04 16:03] LABS: Bacteria/HPF 1+ HPF (None Seen); CAUTI Indications for Culture Fever or rigors; Clarity Hazy (Clear); RBC/HPF 0-3 HPF (0-3); Squamous Epithelial 0-3 HPF (0-3); WBC/HPF 0-3 HPF (0-3)
[2024-03-04 16:04] LABS: Urine Culture Reflex No No
[2024-03-04] MEDS ORDERED: Sodium Chloride 0.9% 250 ML 250 ML ONE (16:41)
[2024-03-04] MEDS ORDERED: Vancomycin 1 GM VIAL ONE (16:41)
[2024-03-04] MEDS ORDERED: Aspirin Chewable 81 MG TAB ONE (17:36)
[2024-03-04 17:52] LABS: Troponin I Less than 0.010 ng/mL (< 0.028)
== END 2024-03-04 18:28 | disposition short-term general hospital (02) ==
LOC: MADERS 13:29
DX: I48.91 Unspecified atrial fibrillation (principal); L03.311 Cellulitis of abdominal wall; E83.42 Hypomagnesemia; J44.9 Chronic obstructive pulmonary disease, unspecified; I11.0 Hypertensive heart disease with heart failure; I50.9 Heart failure, unspecified; I45.81 Long QT syndrome; R65.10 Systemic inflammatory response syndrome (SIRS) of non-infectious origin without acute organ dysfunction; Z79.899 Other long term (current) drug therapy
CPT/HCPCS: 36415; 71045; 74177; 80053; 81001; 83605; 83735; 83880; 84443; 84484; 85025; 85610; 85730; 86140; 87040; 93005; 94760; 96365; 96366; 96367; 96375; 96376; J0692; J1885; J3370; J3475; J3490; J7050; J7120

== ENCOUNTER 2024-03-09 12:53 | Outpatient (CLI) | payer OTHER | END 2024-03-09 12:54 | disposition home or self-care (01) | LOC: MADRAD 12:53 | PROVIDERS: ATTEND Family Medicine | DX: M54.41 Lumbago with sciatica, right side (principal); M54.42 Lumbago with sciatica, left side; M47.816 Spondylosis without myelopathy or radiculopathy, lumbar region | CPT/HCPCS: 72100 ==

== ENCOUNTER 2024-07-05 15:42 | Emergency (ER) | payer OTHER, MEDICAID ==
[2024-07-05] MEDS ORDERED: Ketorolac Tromethamine 30 MG (1 mL) VIAL ONE (17:38)
== END 2024-07-05 17:50 | disposition home or self-care (01) ==
LOC: MADERS 15:42
DX: B37.2 Candidiasis of skin and nail (principal); M54.50 Low back pain, unspecified; I10 Essential (primary) hypertension; J44.9 Chronic obstructive pulmonary disease, unspecified
CPT/HCPCS: 96372; 99283; J1885

== ENCOUNTER 2025-07-10 17:02 | Outpatient (CLI) | payer MEDICARE, MEDICAID | END 2025-07-10 17:03 | disposition home or self-care (01) | LOC: MADRAD 17:02 | PROVIDERS: ATTEND Family Medicine | DX: M25.561 Pain in right knee (principal); M17.11 Unilateral primary osteoarthritis, right knee ==